=== PATIENT | male | born 1985 | race Caucasian/White ===

== ENCOUNTER 2017-10-02 17:28 | Inpatient (IN) | payer SELFPAY ==
[2017-10-02 18:14] LABS: Absolute Neutrophil 10.7 K/uL (1.8-8.0); Basophils % 1.1 % (0-1.3); Eosinophils % 0.2 % (0-4.4); Hematocrit 39.8 % (39.6-49.0); Lymphocytes % 14.1 % (15.3-44.8); MCH 28.9 pg (27.0-35.0); MCV 84.3 fL (80-100); MPV 9.5 fL (7.6-11.3); Monocytes % 7.5 % (3.3-12.3); RBC Red Blood Cell Count 4.72 M/uL (4.33-5.43)
[2017-10-02] MEDS ORDERED: NA CHLORIDE 0.9% 1,000 ML ONE (18:14)
[2017-10-02 18:36] LABS: Albumin 3.3 g/dL (3.4-5.0); Bilirubin Direct 0.5 mg/dL (0-0.2); Bilirubin Total 3.3 mg/dL (0.2-1.0); Potassium 3.7 mmol/L (3.5-5.1); Protein, Total 9.1 g/dL (6.4-8.2)
--- NOTE | 2017-10-02 20:30 | RAD REPORT ---
EXAM DESCRIPTION: CT - Abdomen Pelvis W Contrast - 10/02/2017 8:07 pm COMPARISON: None. TECHNIQUE: Biphasic, helical CT imaging of the abdomen and pelvis was performed following 100 ml non -ionic IV contrast. Oral contrast was given. All CT scans are performed using dose optimization technique as appropriate and may include automated exposure control or mA/KV adjustment according to patient size. FINDINGS: No suspicious findings in the lung bases. The liver, spleen, and pancreas show no suspicious findings. Fatty infiltration of the liver is prese nt. No gallbladder or biliary tree abnormality. Symmetric renal function is seen with no hydronephrosis or suspicious renal mass. No pyelonephritis o r acute renal parenchymal process. Contracted urinary bladder shows no suspicious finding. No gastric dilatation or gastric wall thickening. Small bowel to the distal ileum is unremarkable. Th e terminal ileum is abnormal. There is wall thickening and edema secondary to a grossly abnormal appe ndix. The appendix is dilated with the mid and distal appendix showing poorly demarcated hines. There is extensive edematous/ inflammatory stranding in the adjacent fat. Numerous right lower quadrant me senteric lymph nodes are present. No free air. No extravasation of contrast. Oral CT contrast has sierra ched the distal rectum. No abscess. No free air or other area of inflammatory stranding. No hernia, mass or bulky lymphadeno opal. No adrenal abnormality. No suspicious bony findings. IMPRESSION: Acute appendicitis. Appendix is classic right lower quadrant location. There is extensive edematous/ inflammatory stranding and poorly defined hines of the appendix. Perfor ation is suspected. No free air or abscess. Fatty infiltration of the liver.
[2017-10-02] MEDS ORDERED: METRONIDAZOLE 500mg IVPB 500 MG/100 ML BAG IV ONE (20:40)
[2017-10-02] MEDS ORDERED: NA CHLORIDE 0.9% 100 ML IV ONE (20:40)
[2017-10-02] MEDS ORDERED: CEFOTAXIME SODIUM 1 GM/VIAL ONE (20:40)
--- NOTE | 2017-10-02 20:44 | ER ---
Nurse's Notes [facility] Name: Francesco Lee Age: 32 yrs Sex: Male : 1985 Arrival Date: 10/02/2017 Time: 17:32 Bed 13 Private MD: Diagnosis: Acute appendicitis-possible perforation Presentation: 10/02 17:39 Presenting complaint: Patient states: RLQ pain, was seen at [facility], sent here for sg evaluation d/t suspicion for an appendicitis, reports fever for about a week, RLQ pain and tenderness. Transition of care: patient was not received from another setting of care. Transition of care: patient was received from another setting of care (ambulatory primary care physician practice), [facility]. Onset of symptoms was September 24, 2017. Risk Assessment: Do you want to hurt yourself or someone else? Patient reports no desire to harm self or others. Initial Sepsis Screen: Does the patient meet any 2 criteria? HR > 90 bpm. Does the patient have a suspected source of infection? No. Patient's initial sepsis screen is negative. Care prior to arrival: None. 17:39 Method Of Arrival: Ambulatory sg 17:39 Acuity: MATILDE 3 sg Historical: - Allergies: 17:41 No Known Allergies; sg - Home Meds: 17:41 None [Active]; sg - PMHx: 17:41 None; sg - PSHx: 17:41 None; sg - Immunization history:: Adult Immunizations up to date. - Social history:: Smoking status: Patient/guardian denies using tobacco. - Ebola Screening: : Patient negative for fever greater than or equal to 101.5 degrees Fahrenheit, and additional compatible Ebola Virus Disease symptoms Patient denies exposure to infectious person Patient denies travel to an Ebola-affected area in the 21 days before illness onset No symptoms or risks identified at this time. Screenin:31 Abuse screen: Denies threats or abuse. Denies injuries from another. Nutritional bs1 screening: No deficits noted. Tuberculosis screening: No symptoms or risk factors identified. Fall Risk None identified. Assessment: 19:08 General: Appears in no apparent distress. uncomfortable, obese, Behavior is calm, bs1 cooperative, appropriate for age. Pain: Complains of pain in right lower abdomen Pain does not radiate. Neuro: Level of Consciousness is awake, alert, obeys commands, Oriented to person, place, time, situation, Appropriate for age. Cardiovascular: Denies chest pain, shortness of breath, Heart tones S1 S2 present Capillary refill < 3 seconds Patient's skin is warm and dry. Respiratory: Airway is patent Trachea midline Respiratory effort is even, unlabored, Breath sounds are clear bilaterally. GI: Abdomen is round non-distended, Bowel sounds present X 4 quads. Abdomen is tender to palpation in right lower quadrant Reports lower abdominal pain, nausea. : No signs and/or symptoms were reported regarding the genitourinary system. EENT: No signs and/or symptoms were reported regarding the EENT system. Derm: Skin is intact, Skin is pink, warm \T\ dry. normal. Musculoskeletal: Circulation, motion, and sensation intact. Capillary refill < 3 seconds, Range of motion: intact in all extremities. 20:10 Reassessment: Patient appears in no apparent distress at this time. Patient and/or bs1 family updated on plan of care and expected duration. Pain level reassessed. Patient is alert, oriented x 3, equal unlabored respirations, skin warm/dry/pink. 20:45 Reassessment: Informed BRADY Harp that patients temp is 101.2 oral. Patient is bs1 currently NPO, antibiotics infusing. No further orders at this time. 21:25 Reassessment: Dr Castillo at bedside speaking with patient regarding surgery and POC. bs1 21:35 Reassessment: Patient and/or family updated on plan of care and expected duration. Pain bs1 level reassessed. Patient is alert, oriented x 3, equal unlabored respirations, skin warm/dry/pink. Report given to PACU nurse. Patient states understanding of POC. Vital Signs: 17:30 BP 160 / 92; Pulse 110; Resp 18; Pulse Ox 100% on R/A; Weight 158.3 kg (R); Height 6 sg ft. 1 in. (187 cm); Pain 10/10; 18:10 Temp 101.1(O); aj 19:30 BP 151 / 89; Pulse 102; Resp 18 S; Pulse Ox 96% on R/A; bs1 20:30 BP 145 / 75; Pulse 119; Resp 19 S; Pulse Ox 97% on R/A; bs1 20:45 BP 132 / 76; Pulse 116; Resp 18; Temp 101.2(O); Pulse Ox 96% on R/A; Pain 5/10; bs1 21:15 BP 144 / 79; Pulse 112; Resp 18 S; Temp 101.2(O); Pulse Ox 97% ; bs1 17:30 Body Mass Index 45.27 (158.30 kg, 187 cm) ED Course: 17:32 Patient arrived in ED. as 17:41 Triage completed. sg 17:42 Arm band placed on. sg 17:47 Loyd Peña, BRADY is PHCP. pm1 17:47 Sage Pham MD is Attending Physician. pm1 18:00 Peg Coles, ELIAS is Primary Nurse. aj 18:08 Initial lab(s) drawn, by me, sent to lab. Inserted saline lock: 20 gauge in right em1 antecubital area, using aseptic technique. Blood collected. 19:32 Patient has correct armband on for positive identification. Bed in low position. Call bs1 light in reach. Side rails up X 1. Pulse ox on. NIBP on. 19:[address] via wheelchair. nj 20:07 CT Abd/Pelvis - W/Contrast In Process Unspecified. EDMS 20:09 CT completed. Patient tolerated procedure well. Patient moved back from CT. nj 20:43 Santos Castillo MD is Hospitalizing Provider. pm1 21:38 No provider procedures requiring assistance completed. Patient transferred, IV remains bs1 in place. intact, patient transferred to OR. Administered Medications: 18:13 Drug: NS 0.9% 1000 ml Route: IV; Rate: 1000 ml; Site: right antecubital; 21:41 Follow up: IV Status: Completed infusion bs1 20:50 Drug: Flagyl 500 mg Volume: 100 ml; Route: IVPB; Rate: 200 ml/hr; Infused Over: 30 bs1 mins; Site: right antecubital; 21:41 Follow up: IV Status: Completed infusion bs1 20:56 Drug: cefOTAXime 2 grams Route: IVPB; Infused Over: 30 mins; Site: right antecubital; bs1 21:40 Follow up: IV Status: Completed infusion bs1 Outcome: 20:43 Decision to Hospitalize by Provider. pm1 21:39 Admitted to OR accompanied by nurse, via stretcher, with chart, Other Report given to bs1 PACU nurse. Patient to be admitted to [facility] floor rm 213 post surgery 21:39 Condition: stable 21:39 Instructed on the need for admit, Demonstrated understanding of instructions, follow-up care. 21:42 Patient left the ED. bs1 Signatures: Dispatcher [employer] EDDvae Arango RN Peg Johnston RN RN aj Martinez, Amelia as Martinez, Eric em1 Sayda Brown RN RN ss Loyd Peña NP [employer] ARCHITECT pm1 Chapo Arias Brittany, RN RN bs1 Corrections: (The following items were deleted from the chart) 18:08 17:39 Initial Sepsis Screen: Does the patient meet any 2 criteria? No. Patient's ss initial sepsis screen is negative. Does the patient have a suspected source of infection? No. Patient's initial sepsis screen is negative. sg
--- NOTE | 2017-10-02 20:44 | EDPHYS ---
Physician Documentation [facility] Name: Francesco Lee Age: 32 yrs Sex: Male : 1985 Arrival Date: 10/02/2017 Time: 17:32 Bed 13 Private MD: ED Physician Sage Pham HPI: 10/02 18:00 This 32 yrs old Male presents to ER via Ambulatory with complaints of pm1 Abdominal Pain. 18:00 The patient presents with abdominal pain right lower quadrant. Onset: The pm1 symptoms/episode began/occurred 1 week(s) ago. The symptoms do not radiate. Associated signs and symptoms: Pertinent positives: nausea, Pertinent negatives: chest pain, diarrhea, dysuria, fever, shortness of breath, vomiting. The symptoms are described as achy, constant. Modifying factors: The symptoms are alleviated by nothing, the symptoms are aggravated by touching the area. Severity of pain: in the emergency department the pain has improved. The patient has not experienced similar symptoms in the past. The patient has been recently seen at an urgent care, just prior to arrival, today. Patient with diffuse abdominal pain for 1 week. Pain started localizing to right lower quadrant over the past 2-3 days. Patient presented to clinic today and was told to report to the ER. Historical: - Allergies: 17:41 No Known Allergies; sg - Home Meds: 17:41 None [Active]; sg - PMHx: 17:41 None; sg - PSHx: 17:41 None; sg - Immunization history:: Adult Immunizations up to date. - Social history:: Smoking status: Patient/guardian denies using tobacco. - Ebola Screening: : Patient negative for fever greater than or equal to 101.5 degrees Fahrenheit, and additional compatible Ebola Virus Disease symptoms Patient denies exposure to infectious person Patient denies travel to an Ebola-affected area in the 21 days before illness onset No symptoms or risks identified at this time. ROS: 18:00 Constitutional: Negative for fever, chills, and weight loss, Eyes: Negative for injury, pm1 pain, redness, and discharge, ENT: Negative for injury, pain, and discharge, Neck: Negative for injury, pain, and swelling, Cardiovascular: Negative for chest pain, palpitations, and edema, Respiratory: Negative for shortness of breath, cough, wheezing, and pleuritic chest pain. 18:00 Back: Negative for injury and pain, : Negative for injury, bleeding, discharge, and swelling, MS/Extremity: Negative for injury and deformity, Skin: Negative for injury, rash, and discoloration, Neuro: Negative for headache, weakness, numbness, tingling, and seizure. 18:00 Abdomen/GI: Positive for abdominal pain, nausea, of the right lower quadrant, Negative for vomiting, diarrhea. Exam: 18:00 Constitutional: This is a well developed, well nourished patient who is awake, alert, pm1 and in no acute distress. Head/Face: Normocephalic, atraumatic. Eyes: Pupils equal round and reactive to light, extra-ocular motions intact. Lids and lashes normal. Conjunctiva and sclera are non-icteric and not injected. Cornea within normal limits. Periorbital areas with no swelling, redness, or edema. ENT: Nares patent. No nasal discharge, no septal abnormalities noted. Tympanic membranes are normal and external auditory canals are clear. Oropharynx with no redness, swelling, or masses, exudates, or evidence of obstruction, uvula midline. Mucous membranes moist. Neck: Trachea midline, no thyromegaly or masses palpated, and no cervical lymphadenopathy. Supple, full range of motion without nuchal rigidity, or vertebral point tenderness. No Meningismus. Chest/axilla: Normal chest wall appearance and motion. Nontender with no deformity. No lesions are appreciated. Cardiovascular: Regular rate and rhythm with a normal S1 and S2. No gallops, murmurs, or rubs. No pulse deficits. Respiratory: Lungs have equal breath sounds bilaterally, clear to auscultation and percussion. No rales, rhonchi or wheezes noted. No increased work of breathing, no retractions or nasal flaring. 18:00 Back: No spinal tenderness. No costovertebral tenderness. Full range of motion. Skin: Warm, dry with normal turgor. Normal color with no rashes, no lesions, and no evidence of cellulitis. MS/ Extremity: Pulses equal, no cyanosis. Neurovascular intact. Full, normal range of motion. 18:00 Abdomen/GI: Inspection: obese Bowel sounds: normal, Palpation: soft, moderate abdominal tenderness, in the right lower quadrant, mass, is not appreciated, rebound tenderness, is not appreciated. 18:00 Neuro: Orientation: is normal, Motor: moves all fours, strength is normal, strength is 5/5 in all extremities, Sensation: is normal, no obvious gross deficits. Vital Signs: 17:30 BP 160 / 92; Pulse 110; Resp 18; Pulse Ox 100% on R/A; Weight 158.3 kg (R); Height 6 sg ft. 1 in. (187 cm); Pain 10/10; 18:10 Temp 101.1(O); aj 19:30 BP 151 / 89; Pulse 102; Resp 18 S; Pulse Ox 96% on R/A; bs1 20:30 BP 145 / 75; Pulse 119; Resp 19 S; Pulse Ox 97% on R/A; bs1 20:45 BP 132 / 76; Pulse 116; Resp 18; Temp 101.2(O); Pulse Ox 96% on R/A; Pain 5/10; bs1 21:15 BP 144 / 79; Pulse 112; Resp 18 S; Temp 101.2(O); Pulse Ox 97% ; bs1 17:30 Body Mass Index 45.27 (158.30 kg, 187 cm) sg MDM: 17:48 Patient medically screened. pm1 18:23 ED course: patient refused pain and antiemetic medication. pm1 20:40 Data reviewed: vital signs. Counseling: I had a detailed discussion with the patient pm1 and/or guardian regarding: the historical points, exam findings, and any diagnostic results supporting the discharge/admit diagnosis, the need for outpatient follow up. Physician consultation: Santos Castillo MD was contacted at 20:42, regarding patient's condition, and will see patient shortly, Call OR crew. 10/02 17:49 Order name: Amylase, Serum; Complete Time: 20:27 pm1 10/02 17:49 Order name: Basic Metabolic Panel; Complete Time: 20:27 pm1 10/02 17:49 Order name: CBC with Diff; Complete Time: 20:27 pm1 10/02 17:49 Order name: Creatinine for Radiology; Complete Time: 20:27 pm1 10/02 17:49 Order name: Hepatic Function; Complete Time: 20:27 pm1 10/02 17:49 Order name: Lipase; Complete Time: 20:27 pm1 10/02 17:49 Order name: Urine Microscopic Only pm1 10/02 17:49 Order name: CT Abd/Pelvis - W/Contrast; Complete Time: 20:37 pm1 10/02 20:44 Order name: Type And Screen pm1 10/02 20:44 Order name: Ptt, Activated pm1 10/02 20:44 Order name: PT-INR pm1 10/02 21:00 Order name: Urine Dipstick--Ancillary (enter results) 2 10/02 21:03 Order name: Urine Dipstick-Ancillary [facility] 10/02 17:49 Order name: IV Saline Lock; Complete Time: 18:08 pm1 10/02 17:49 Order name: Labs collected and sent; Complete Time: 18:08 pm1 10/02 17:49 Order name: Urine Dipstick-Ancillary (obtain specimen); Complete Time: 20:57 pm1 10/02 17:49 Order name: NPO; Complete Time: 18:13 pm1 Administered Medications: 18:13 Drug: NS 0.9% 1000 ml Route: IV; Rate: 1000 ml; Site: right antecubital; ss 21:41 Follow up: IV Status: Completed infusion bs1 20:50 Drug: Flagyl 500 mg Volume: 100 ml; Route: IVPB; Rate: 200 ml/hr; Infused Over: 30 bs1 mins; Site: right antecubital; 21:41 Follow up: IV Status: Completed infusion bs1 20:56 Drug: cefOTAXime 2 grams Route: IVPB; Infused Over: 30 mins; Site: right antecubital; bs1 21:40 Follow up: IV Status: Completed infusion bs1 Disposition: 10/03 07:14 Co-signature as Attending Physician, Sage Pham MD. rn Disposition: 10/02/17 20:43 Hospitalization ordered by Santos Castillo for Observation. Preliminary diagnosis is Acute appendicitis - possible perforation. - Bed requested for Telemetry/MedSurg (observation). - Status is Observation. bs1 - Condition is Stable. - Problem is new. - Symptoms have improved. UTI on Admission? No Signatures: Dispatcher [employer] EDWI Melissa Birmingham RN RN mw Gay, Steven, RN RN sg Nieto, Roman, MD MD rn Smirch, Shelby, RN RN ss Loyd Peña, PEDIATRIC HOSPITALIST PEDIATRIC HOSPITALIST pm1 Seay, Blanca, RN RN bs1 Corrections: (The following items were deleted from the chart) 10/02 20:46 20:43 Hospitalization Ordered by Santos Castillo MD for Observation. Preliminary mw diagnosis is Acute appendicitis - possible perforation. Bed requested for Operating Room. Status is Observation. Condition is Stable. Problem is new. Symptoms have improved. UTI on Admission? No. pm1 20:48 20:46 10/02/2017 20:43 Hospitalization Ordered by Santos Castillo MD for Observation. mw Preliminary diagnosis is Acute appendicitis - possible perforation. Bed requested for Telemetry/MedSurg (observation). Status is Observation. Condition is Stable. Problem is new. Symptoms have improved. UTI on Admission? No. mw 21:42 20:48 10/02/2017 20:43 Hospitalization Ordered by Santos Castillo MD for Observation. bs1 Preliminary diagnosis is Acute appendicitis - possible perforation. Bed requested for Telemetry/MedSurg (observation). Status is Observation. Condition is Stable. Problem is new. Symptoms have improved. UTI on Admission? No. mw
[2017-10-02 21:02] LABS: Urine Blood TRACE (NEG); Urine Glucose NEGATIVE (NEG); Urine Protein 2+ (NEG); Urine Specific Gravity 1.015 (1.005-1.030)
[2017-10-02 21:14] LABS: Protime INR 1.49
[2017-10-02] MEDS ORDERED: LIDOCAINE 2% MPF 5 ML VIAL ONE (21:29)
[2017-10-02] MEDS ORDERED: FENTANYL CITR 100 MCG/2 ML ONE ×4 (21:29→23:22)
[2017-10-02] MEDS ORDERED: PROPOFOL 200 MG/20 ML VIAL IV ONE (21:29)
[2017-10-02] MEDS ORDERED: ROCURONIUM 50 MG/5 ML VIAL IV ONE ×2 (21:29→23:06)
[2017-10-02] MEDS ORDERED: Ringers Lactate 1,000 ML IV ONE (21:41)
[2017-10-02] MEDS ORDERED: BUPIVACAINE 0.5% Inj,MDV 50 mL VIAL ONE (21:55)
--- NOTE | 2017-10-02 22:10 | P.HP ---
Date of Service: 10/02/17 PC: This 32-year-old male presents emergency room with right lower quadrant abdominal pain for diagnosis and treatment. HPC: Patient has been having abdominal discomfort for the last week. Noticed today that the pain seemed to change and became slightly more intense. Has not required any pain medicine a hand is actually reluctant to take some at the current time PMH: Morbid obesity, denies sleep apnea. PSHx: Negative SOC: No known allergies SYS REVIEW:, wheeze, shortness of breath. No chest pain or palpitations. Denies any urinary complaints. 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 The risks of this procedure have been discussed. The possibility of bleeding, and infection, injury to blood vessels and surrounding structures were explained. The possible need for an open and/or further surgeries and procedures was discussed. He understands and wants us to proceed.
[2017-10-02] MEDS ORDERED: KETOROLAC 30 MG/ML INJ ONE (22:15)
[2017-10-02] MEDS ORDERED: ONDANSETRON HCL 40 MG/20 ML VIAL ONE (22:15)
[2017-10-02] MEDS ORDERED: DEXAMETHASONE 10 MG/ML VIAL ONE (22:16)
[2017-10-02 22:19] LABS: Urine Bacteria <20 /HPF (NONE SEEN); Urine Culture Reflex Order NOT NEEDED; Urine RBC <5 /HPF (NONE SEEN)
[2017-10-02] MEDS ORDERED: GLYCOPYRROLATE 0.2 MG/ML SYR ONE (23:37)
[2017-10-02] MEDS ORDERED: NEOSTIGMINE 1 MG/ML -5 ML SYRINGE ONE (23:37)
[2017-10-03] MEDS ORDERED: Ringers Lactate 1,000 ML IV ONE (00:33)
[2017-10-03] MEDS ORDERED: HYDROMORPHONE HCL 1 MG/ML INJ IV ONE (00:40)
[2017-10-03] MEDS ORDERED: HYDROMORPHONE HCL 1 MG/ML INJ ONE (00:43)
--- NOTE | 2017-10-03 00:48 | P.OP ---
Preoperative diagnosis: Acute abdomen with appendicitis Postoperative diagnosis: The same with the intra-abdominal abscess Primary procedure: Laparoscopic converted open appendectomy Secondary procedure: Drainage of intra-abdominal abscess Anesthesia: General Estimated blood loss: Less than 20 cc Specimen: Fragmented appendix and necrotic tissue Operative Technique: The patient brought to the operating room and placed supine on the table. After the induction of adequate general endotracheal anesthesia, the area of the abdomen was prepped with a DuraPrep solution, and she was draped in usual aseptic manner. A subumbilical incision was made. This brought down through the skin and subcutaneous tissue. The Visiport was now used into the peritoneal cavity and created pneumoperitoneum to approximately 15 mm of mercury. Under direct vision a mid 5 mm trocar was placed in the upper midline, and 1 in the lower midline. With the patient placed in Trendelenburg and rolled to the left we were able to visualize the right lower quadrant. We could see the inflammatory process in that area. Just at the edge of the pelvic brim on the sidewall of the true pelvis there was an inflammatory process involving the omentum small-bowel and what appeared to be a tip of an appendix. The omentum is gently detached from this area. We could see those was a large inflammatory process. The distal ileum was adherent to the pelvic sidewall coming up out of the pelvis going over to this inflammatory phlegmon. Gentle dissection was began to try and separate these areas. We encounter a large amount of old pass. This was aspirated from the peritoneal cavity. Trying to identify cecum, distal ileum, and appendix as well as this inflammatory omentum was difficult. We did not have adequate visualization nor could we safely maneuver the tissue. Hence a decision was made to make a right lower quadrant incision into the case open. After having marked and the anterior abdominal wall the optimal position of our skin incision, we converted to an open procedure. The right lower quadrant skin incision was made over the area that we had marked. This brought down through the skin and subcutaneous tissue. The external oblique was opened in direction of its fibers. The internal was that within a similar fashion. The posterior sheath was now grasped between hemostats sharply incised to allow access to the peritoneal cavity. He gently using a finger were able to dissect off the lateral sidewall this inflammatory process. The distal ileum was identified. The ruptured appendix that appeared a have blown out just at the middle portion of the appendix. Necrotic fat and debris were removed from the anterior and lateral abdominal wall. The base of the appendix at its junction with the cecum was identified. This was isolated in a linear Stapler was now placed across the base of the appendix and its junction with the cecum and fired. The specimen was sent for histopathology. This right lower quadrant was now irrigated with a copious amount of saline solution. We were able to introduce a 10 mm Manohar-Granger drain into this area. It was brought out at the inferior trocar site. The peritoneum and posterior sheath were now approximated using a running stitch of chromic. The muscle layers were now approximated using interrupted stitches of PDS. The subcutaneous fat was irrigated with a saline solution and hawk were applied to the skin. At this point we would back to the umbilical area. Once again the pneumoperitoneum was reestablished. The right lower quadrant was inspected to ensure adequate hemostasis. We could see the abdominal wall where this inflammatory process had mean. The Manohar-Granger drain was in good position draining this. The pneumoperitoneum was now collapsed, hawk applied to the skin, and he was in a stable condition when sent to the recovery room. Needle sponge instrument count were correct. All Manohar-Granger drain was placed. 1 specimen was sent Drain(s): SRUTHI drain Transferred to: Recovery Room Condition: Good
[2017-10-03] MEDS ORDERED: HYDROMORPHONE HCL 0.5 MG/0.5 ML INJ IV ONE (00:50)
[2017-10-03] MEDS ORDERED: MORPHINE 4 MG/ML SYR IV PRN (01:01)
[2017-10-03] MEDS ORDERED: ONDANSETRON 4 MG/2 ML VIAL IV PRN (01:01)
[2017-10-03] MEDS: NA CHLORIDE 0.9% 1,000 ML IV SCH ×3 (01:59→16:21)
[2017-10-03] MEDS: Levofloxacin500mg IV 500 MG/100 ML BAG IV SCH (02:00)
[2017-10-03] MEDS: METRONIDAZOLE 500mg IVPB 500 MG/100 ML BAG IV SCH ×3 (02:01→18:42)
[2017-10-03 06:17] LABS: Absolute Lymphocytes (CBC) 1.1 K/uL (0.7-4.9); Absolute Monocytes 0.9 K/uL (0.1-1.3); Absolute Neutrophil 15.2 K/uL (1.8-8.0); Basophils % 0.2 % (0-1.3); Hematocrit 38.8 % (39.6-49.0); Lymphocytes % 6.6 % (15.3-44.8); MCH 28.3 pg (27.0-35.0); MCV 86.9 fL (80-100); MPV 9.8 fL (7.6-11.3); Monocytes % 5.1 % (3.3-12.3); RBC Red Blood Cell Count 4.46 M/uL (4.33-5.43)
[2017-10-03] MEDS: IBUPROFEN 400 MG TAB PO PRN ×2 (06:39→18:28)
[2017-10-03] MEDS: ACETAMINOPHEN 500 MG TAB PO PRN (08:47)
[2017-10-03] MEDS ORDERED: NA CHLORIDE 0.9% 500 ML IV ONE (09:59)
[2017-10-03 10:06] LABS: Blood Morphology Comment NOT SEEN (NOT SEEN); Platelet Estimate ADEQ
[2017-10-03 10:07] LABS: Platelets, Giant FEW
--- NOTE | 2017-10-03 14:13 | P.PN ---
Date of Service: 10/03/17 S: Patient states he feels much better today. Has been up ambulating. Voiding to some degree on his own. States his pain is controlled. O: Incisions are clean, 60 cc out via SRUTHI drain hemoglobin hematocrit are stable. Had elevated white cell count with some bands. A: Patient awake alert responsive and appropriate. His vital signs are stable. He does have a temperature 100 04/14/2001. He is on antibiotics at the current time and did have a critical value come back as far as the granulocyte scope. I do not feel any he is septic at this point. We will continue to observe him in keep close observation of his vital signs. P: Bolus 500 cc of normal saline patient. Incentive spirometry. He will wear his SCDs.
[2017-10-03] MEDS ORDERED: HYDROCODONE/APAP 7.5/325 MG TAB PO PRN (19:19)
[2017-10-04] MEDS: METRONIDAZOLE 500mg IVPB 500 MG/100 ML BAG IV SCH ×3 (00:07→17:47)
[2017-10-04] MEDS: Levofloxacin500mg IV 500 MG/100 ML BAG IV SCH (02:42)
[2017-10-04] MEDS: NA CHLORIDE 0.9% 1,000 ML IV SCH ×4 (02:43→23:04)
[2017-10-04] MEDS: ACETAMINOPHEN 500 MG TAB PO PRN (04:54)
[2017-10-04] MEDS: IBUPROFEN 400 MG TAB PO PRN (09:44)
[2017-10-04] MEDS ORDERED: ENOXAPARIN 40 MG/0.4 ML SQ ONE (18:37)
--- NOTE | 2017-10-04 18:38 | P.PN ---
S: Patient has no complaints, denies any pain, not requiring pain medicine. Still not much of an appetite, O: Abdomen is soft, no guarding or rebound, adequate drainage A: Surgically stable P: Emphasized need to leave the SCDs in place. He needs to ambulate more, continue incentive spirometry, will advance diet and repeat CBC in a.m.. Anticipate discharge Friday on antibiotics.
[2017-10-05] MEDS: METRONIDAZOLE 500mg IVPB 500 MG/100 ML BAG IV SCH ×3 (00:57→18:07)
[2017-10-05] MEDS: Levofloxacin500mg IV 500 MG/100 ML BAG IV SCH (02:37)
[2017-10-05] MEDS: ACETAMINOPHEN 500 MG TAB PO PRN (04:39)
[2017-10-05 06:21] LABS: Absolute Lymphocytes (CBC) 1.5 K/uL (0.7-4.9); Absolute Monocytes 0.8 K/uL (0.1-1.3); Basophils % 0.3 % (0-1.3); Eosinophils % 0.8 % (0-4.4); Hematocrit 32.9 % (39.6-49.0); Lymphocytes % 13.1 % (15.3-44.8); MCH 27.7 pg (27.0-35.0); MCV 86.1 fL (80-100); MPV 9.4 fL (7.6-11.3); Monocytes % 7.1 % (3.3-12.3); RBC Red Blood Cell Count 3.82 M/uL (4.33-5.43)
[2017-10-05] MEDS: NA CHLORIDE 0.9% 1,000 ML IV SCH ×2 (09:04→18:07)
[2017-10-06] MEDS: METRONIDAZOLE 500mg IVPB 500 MG/100 ML BAG IV SCH ×3 (00:27→17:13)
[2017-10-06] MEDS: NA CHLORIDE 0.9% 1,000 ML IV SCH ×3 (01:01→17:13)
[2017-10-06] MEDS: Levofloxacin500mg IV 500 MG/100 ML BAG IV SCH (02:12)
--- NOTE | 2017-10-06 15:53 | P.PN ---
Date of Service: 10/06/17 S: Patient just woke up, has no specific complaints. Has been up ambulating, not much of an appetite and able to keep down when he eats. O: Dressings taken down, minimal and SRUTHI drain. Incision sites are all clean. A: Surgically stable, remains afebrile P: I will discontinue the SRUTHI drain today. Facial most likely be discharged in the a.m.. Once again leave emphasized need to walk, uses incentive spirometer, and changes dressings as needed. He may shower, his is on a regular diet.
[2017-10-07] MEDS: METRONIDAZOLE 500mg IVPB 500 MG/100 ML BAG IV SCH ×2 (00:42→08:24)
[2017-10-07] MEDS: Levofloxacin500mg IV 500 MG/100 ML BAG IV SCH (01:57)
[2017-10-07] MEDS: NA CHLORIDE 0.9% 1,000 ML IV SCH (01:57)
[2017-10-07 06:11] LABS: Absolute Lymphocytes (CBC) 1.8 K/uL (0.7-4.9); Absolute Monocytes 0.5 K/uL (0.1-1.3); Absolute Neutrophil 6.4 K/uL (1.8-8.0); Eosinophils % 2.8 % (0-4.4); Hematocrit 33.7 % (39.6-49.0); Lymphocytes % 19.6 % (15.3-44.8); MCH 28.6 pg (27.0-35.0); MCV 87.1 fL (80-100); MPV 9.4 fL (7.6-11.3); RBC Red Blood Cell Count 3.87 M/uL (4.33-5.43)
--- NOTE | 2017-10-19 19:27 | P.DS ---
Admission Date: 10/02/17 Discharge Date: 10/19/17 Discharge Condition: GOOD Reason for Admission: Acute postoperative abdominal pain Procedures: Laparoscopic converted to open appendectomy Brief History of Present Illness: This patient presented emergency room with a 5 day history of right lower quadrant and back pain. He was found have a ruptured appendix. He is brought to the operating room we will underwent a laparoscopic converted to open appendectomy. At the time of surgery there was any intense inflammatory process in the right lower quadrant the we were unable to safely in manipulate laparoscopically. Because of this a right lower quadrant skin incision was made and the patient tolerated this well. A Manohar-Granger drain was placed. The patient was admitted. Over the course of next 48 hr the patient increase his ambulation. He felt better. His appetite increased. There was minimal drainage from the SRUTHI drain and we were able to discontinue it. He was finally deemed fit for discharge. On discharge the patient was in a stable condition, tolerating a diet, and his pain was well controlled on oral medication. He has been instructed she ambulated home, continue his incentive spirometry, and understands how to address his wound. He will see me next week in my office peer should he have any questions or problems, he is to return to the emergency room, or contact me. Hospital Course: As above Vital Signs/Physical Exam: Temp Pulse Resp BP Pulse Ox 98.1 F 83 18 161/86 H 95 10/07/17 12:00 10/07/17 12:00 10/07/17 12:00 10/07/17 12:00 10/07/17 12:00 Laboratory Data at Discharge: WBC 9.1 K/uL (4.3-10.9) D 10/07/17 05:41 Hgb 11.1 g/dL (13.6-17.9) L 10/07/17 05:41 Hct 33.7 % (39.6-49.0) L 10/07/17 05:41 Plt Count 406 K/uL (152-406) D 10/07/17 05:41 PT 17.6 SECONDS (9.5-12.5) H 10/02/17 21:00 INR 1.49 10/02/17 21:00 APTT 26.3 SECONDS (24.3-36.9) 10/02/17 21:00 Sodium 134 mmol/L (136-145) L 10/03/17 05:29 Potassium 4.0 mmol/L (3.5-5.1) 10/03/17 05:29 BUN 7 mg/dL (7-18) 10/03/17 05:29 Creatinine 1.10 mg/dL (0.55-1.3) 10/03/17 05:29 Glucose 152 mg/dL (74-106) H 10/03/17 05:29 Total Bilirubin 3.3 mg/dL (0.2-1.0) H 10/02/17 17:55 AST 34 U/L (15-37) 10/02/17 17:55 ALT 87 U/L (12-78) H 10/02/17 17:55 Alkaline Phosphatase 126 U/L (45-117) H 10/02/17 17:55 Amylase 41 U/L (25-115) 10/02/17 17:55 Lipase 117 U/L (73-393) 10/02/17 17:55 Home Medications: levoFLOXacin [Levaquin] 500 mg PO DAILY 7 Days #7 tab 10/07/17 metroNIDAZOLE [Flagyl] 500 mg PO Q8H 7 Days #21 tablet 10/07/17 New Medications: levoFLOXacin [Levaquin] 500 mg PO DAILY 7 Days #7 tab metroNIDAZOLE [Flagyl] 500 mg PO Q8H 7 Days #21 tablet Followup: Santos Castillo MD [ACTIVE - CAN ADMIT] -
== END 2017-10-07 15:05 | disposition home or self-care (01) | DRG 339 ==
LOC: ER 17:28 → OBSVTOIN 20:46 → ERHOLD 20:46 → 2ND 22:06 → 4TH 10-05 10:46
PROVIDERS: ADMIT Surgery; ATTEND Surgery
PROC: 0DTJ0ZZ Resection of Appendix, Open Approach (ICD-10-PCS; principal; 2017-10-03)
PROC: 0DJD4ZZ Inspection of Lower Intestinal Tract, Percutaneous Endoscopic Approach (ICD-10-PCS; 2017-10-03)
DX: K35.3 Acute appendicitis with localized peritonitis (principal); Z68.42 Body mass index [BMI] 45.0-49.9, adult; E66.01 Morbid (severe) obesity due to excess calories; Z53.31 Laparoscopic surgical procedure converted to open procedure
CPT/HCPCS: 36415; 74177; 80048; 80076; 81003; 81015; 82150; 83690; 85025; 85610; 85730; 86850; 86900; 86901; 87493; 88304; 96361; 96365; 99285; J1100; J1170; J1650; J2405; J2710; J3010; J7030; Q9967